=== PATIENT | male | born 1985 | race Caucasian/White ===

== ENCOUNTER 2019-03-03 13:57 | Emergency (ER) | payer OTHER ==
--- NOTE | 2019-03-03 14:12 | PDOC ---
Rapid Medical Evaluation Chief Complaint: Headache Time Seen by Provider: 03/03/19 14:10 Medical Evaluation: Allergies Allergy/AdvReac Type Severity Reaction Status Date / Time No Known Allergies Allergy Verified 05/30/15 20:13 03/03/19 14:11 HPI: ERICKSON since airplane ride from [place] yesterday PE: No gross deficit ORDERS:LABS and CT scan Discharge Disposition - Diagnosis Headache - Referrals - Patient Instructions - Post Discharge Activity
[2019-03-03 14:14] VITALS: TEMP 97.9; BMI 28.2
[2019-03-03 15:12] LABS: BASO % 0.9 % (0-2.0); EOS % 4.2 % (0-4.5); HEMOGLOBIN 16.1 GM/dL (11.7-16.9); LYMPH % 15.9 % (8-40); MCH 30.5 pg (25.7-33.7); MCHC 33.5 g/dl (32.0-35.9); MEAN CELL VOLUME 91.1 fl (80-96); MEAN PLT VOLUME 8.6 fl (7.5-11.1); MONO % 11.4 % (3.8-10.2); NEUT % 67.6 % (42.8-82.8); PLATELET COUNT 293 K/MM3 (134-434); RBC 5.26 M/mm3 (4.00-5.60); RDW 13.7 % (11.9-15.9); WHITE BLOOD COUNT 7.5 K/mm3 (4.0-10.0)
[2019-03-03 15:37] LABS: ALBUMIN 3.8 g/dl (3.4-5.0); BILIRUBIN,TOTAL 0.5 mg/dL (0.2-1); BLOOD UREA NITROGEN 16.9 mg/dL (7-18); CALCIUM 8.6 mg/dL (8.5-10.1); CREATININE 1.3 mg/dL (0.55-1.3); POTASSIUM 4.4 mmol/L (3.5-5.1); TOT PROT 6.9 g/dl (6.4-8.2)
--- NOTE | 2019-03-03 17:42 | PDOC ---
History of Present Illness - General History Source: Patient - History of Present Illness Timing/Duration: reports: other (yesterday) <Kika CanalesMary - Last Filed: 03/03/19 18:09> <Roxy Rucker - Last Filed: 03/04/19 07:44> - General Chief Complaint: Headache Stated Complaint: HEADACHE/ NAUSEA Time Seen by Provider: 03/03/19 14:10 Past History - Past Medical History COPD: No - Immunization History Immunization Up to Date: Yes - Suicide/Smoking/Psychosocial Hx Smoking History: Never smoked Hx Alcohol Use: No Drug/Substance Use Hx: No Substance Use Type: None <ParkerCindy - Last Filed: 03/03/19 18:09> <Roxy Rucker - Last Filed: 03/04/19 07:44> - Past Medical History Allergies/Adverse Reactions: Allergies Allergy/AdvReac Type Severity Reaction Status Date / Time No Known Allergies Allergy Verified 03/03/19 14:14 Home Medications: Ambulatory Orders Acetaminophen [Tylenol -] 1,000 mg PO Q6H #30 tablet 03/03/19 Review of Systems - Review of Systems Constitutional: No: Chills, Fever ABD/GI: Yes: Nausea. No: Vomiting Neurological: Yes: Headache, Dizziness. No: Numbness, Tingling, Weakness <ParkerCindy - Last Filed: 03/03/19 18:09> *Physical Exam - Vital Signs Last Vital Signs Temp Pulse Resp BP Pulse Ox 97.9 F 59 L 18 120/73 99 03/03/19 14:11 03/03/19 14:11 03/03/19 14:11 03/03/19 14:11 03/03/19 14:11 - Physical Exam General Appearance: Yes: Appropriately Dressed. No: Apparent Distress HEENT: positive: Normal Voice, Other (no ttp over sinuses) Neck: positive: Supple Respiratory/Chest: negative: Respiratory Distress Integumentary: positive: Dry, Warm Neurologic: positive: mortgage manager II-XII NML intact, Fully Oriented, Alert, Normal Mood/ Affect, Motor Strength 5/5 <Cindy Canales - Last Filed: 03/03/19 18:09> - Vital Signs Last Vital Signs Temp Pulse Resp BP Pulse Ox 97.9 F 61 14 118/74 100 03/03/19 14:11 03/03/19 18:10 03/03/19 18:10 03/03/19 18:10 03/03/19 18:10 <Roxy Rucker - Last Filed: 03/04/19 07:44> ED Treatment Course - LABORATORY CBC & Chemistry Diagram: 03/03/19 14:54 03/03/19 14:54 - ADDITIONAL ORDERS Additional order review: Laboratory Results 03/03/19 14:54 Sodium 139 Potassium 4.4 Chloride 106 Carbon Dioxide 26 Anion Gap 7 L BUN 16.9 Creatinine 1.3 Est GFR (CKD-EPI)AfAm 83.09 Est GFR (CKD-EPI)NonAf 71.69 Random Glucose 89 Calcium 8.6 Total Bilirubin 0.5 AST 43 H ALT 88 H Alkaline Phosphatase 92 Total Protein 6.9 Albumin 3.8 03/03/19 14:54 RBC 5.26 MCV 91.1 MCHC 33.5 RDW 13.7 MPV 8.6 Neutrophils % 67.6 Lymphocytes % 15.9 Monocytes % 11.4 H Eosinophils % 4.2 Basophils % 0.9 <Cindy Canales - Last Filed: 03/03/19 18:09> - LABORATORY CBC & Chemistry Diagram: 03/03/19 14:54 03/03/19 14:54 - ADDITIONAL ORDERS Additional order review: 03/03/19 14:54 RBC 5.26 MCV 91.1 MCHC 33.5 RDW 13.7 MPV 8.6 Neutrophils % 67.6 Lymphocytes % 15.9 Monocytes % 11.4 H Eosinophils % 4.2 Basophils % 0.9 <Roxy Rucker - Last Filed: 03/04/19 07:44> Medical Decision Making - Medical Decision Making 03/03/19 17:41 33 yo M, no sig hx, headache. States while on the plane yesterday, [place] the [place] from [place], he developed L periorbital pressure, worse when he bends over with dizziness and nausea. Took motrin w/ no relief. No h/o similar ERICKSON. No URI sxs, ear pain/pressure, f/c. See exam ERICKSON ? migrainous vs sinus ERICKSON vs other non-emergent ERICKSON Stable w/ normal neuro exam CTH and labs ordered for RME unremarkable -pain control in ED -plan is to dc w/ same and PMD f/u as needed 03/03/19 18:09 <Cindy Canales - Last Filed: 03/03/19 18:09> - Medical Decision Making The patient was seen and evaluated in conjunction with midlevel provider under my direct supervision, ancillary studies were reviewed. I agree with the plan as outlined LAYTON Canales. HPI, workup/dispo as outlined. VS reviewed, wnl. anticipate discharge, pcp followup, return precautions 03/04/19 07:44 <Roxy Rucker - Last Filed: 03/04/19 07:44> *DC/Admit/Observation/Transfer <Cindy Canales - Last Filed: 03/03/19 18:09> <Roxy Rucker - Last Filed: 03/04/19 07:44> Diagnosis at time of Disposition: Headache Qualifiers: Headache type: unspecified Headache chronicity pattern: acute headache Intractability: not intractable Qualified Code(s): R51 - Headache - Discharge Dispostion Condition at time of disposition: Improved - Prescriptions Prescriptions: Acetaminophen [Tylenol -] 1,000 mg PO Q6H #30 tablet - Referrals Referrals: Rosenda Brower MD [Primary Care Provider] - - Patient Instructions Printed Discharge Instructions: DI for Headache Additional Instructions: The cause of your headache is unclear at this time, but might be migrainous versus sinus headache. Your and CAT scan were normal today. Please take Motrin or Tylenol as needed for pain and follow-up with your PMD if pain persists - Post Discharge Activity
[2019-03-03] MEDS ORDERED: ONDANSETRON 4 MG TABLET PO ONE (17:43)
[2019-03-03] MEDS ORDERED: KETOROLAC TROMETHAMINE 60 MG/2 ML VIAL IM ONE (17:43)
[2019-03-03] MEDS ORDERED: ACETAMINOPHEN 325 MG TABLET (FP) PO ONE (17:43)
[2019-03-03] MEDS ORDERED: KETOROLAC TROMETHAMINE 60 MG/2 ML VIAL ONE (17:48)
[2019-03-03] MEDS ORDERED: ACETAMINOPHEN 325 MG TABLET (FP) ONE (17:48)
[2019-03-03] MEDS ORDERED: ONDANSETRON *ODT* 4 MG TABLET ONE (17:49)
[2019-03-03 18:27] VITALS: BP 118/74; PULSE 61
== END 2019-03-03 18:27 | disposition home or self-care (01) ==
LOC: JERFT 13:57 → JER 13:57
DX: R51 Headache (principal)
CPT/HCPCS: 36415; 70450-TC; 80053; 85025; 99281-25